=== PATIENT | female | born 1950 | race Two or more races ===

== ENCOUNTER 2022-01-06 07:45 | Inpatient (IN) | payer OTHER ==
[~2022-01-06] VITALS: Ht 167.6 cm; Wt 97.1 kg
[2022-01-06] MEDS ORDERED: ATENOLOL-CHLOR1 EACH PO (09:29)
[2022-01-06] MEDS ORDERED: AMLODIPINE BESY10 MG PO (09:30)
[2022-01-06] MEDS ORDERED: ALDACTONE25 MG PO (09:30)
[2022-01-06] MEDS ORDERED: CRESTOR40 MG PO (09:30)
[2022-01-11] MEDS ORDERED: PIOGLITAZONE HC15 MG (08:00)
[2022-01-11] MEDS ORDERED: LOSARTAN POTASS50 MG (08:01)
[2022-01-11] MEDS ORDERED: OFLOXACIN5 ML (08:01)
[2022-01-11] MEDS ORDERED: CLOTRIMAZOLE-BE15 G1 (08:01)
[2022-01-11] MEDS ORDERED: PRED FORTE5 ML (08:01)
[2022-01-14] MEDS ORDERED: PERCOCET 5-3251 EACH PO (08:21)
[2022-01-14] MEDS ORDERED: ELIQUIS2.5 MG PO (08:21)
[2022-01-14] MEDS ORDERED: DUI500 PO (08:21)
== END 2022-01-14 13:03 | DRG 470 ==
LOC: O/R 01-11 05:00 → SURH 01-11 05:00 → SURG 01-11 07:45 → SURH 01-11 10:11 → SURG 01-11 16:45 → SURH 01-14 13:03
PROVIDERS: ADMIT Orthopaedic Surgery; ATTEND Orthopaedic Surgery
PROC: 0SRD0J9 Replacement of Left Knee Joint with Synthetic Substitute, Cemented, Open Approach (ICD-10-PCS; principal; 2022-01-11 16:45)
DX: M17.12 Unilateral primary osteoarthritis, left knee (principal); M22.12 Recurrent subluxation of patella, left knee; E66.8 Other obesity; I10 Essential (primary) hypertension; E11.9 Type 2 diabetes mellitus without complications; Z20.822 Contact with and (suspected) exposure to COVID-19

== ENCOUNTER 2023-04-23 16:56 | Emergency (ER) | payer OTHER ==
[~2023-04-23] VITALS: Ht 167.6 cm; Wt 97.1 kg
[~2023-04-23 16:56] MED LIST: ALDACTONE25 MG PO; AMLODIPINE BESY10 MG PO; ATENOLOL-CHLOR1 EACH PO; CLOTRIMAZOLE-BE15 G1; CRESTOR40 MG PO; DUI500 PO; ELIQUIS2.5 MG PO; LOSARTAN POTASS50 MG; OFLOXACIN5 ML; PERCOCET 5-3251 EACH PO; PIOGLITAZONE HC15 MG; PRED FORTE5 ML
== END 2023-04-23 19:30 | disposition home or self-care (01) ==
LOC: ER
DX: R05.8 Other specified cough (principal); Z88.6 Allergy status to analgesic agent
CPT/HCPCS: 96372; 99284; J2920